=== PATIENT | male | born 1985 | race Caucasian/White ===

== ENCOUNTER 2024-03-01 09:49 | Outpatient (AMB) | payer OTHER, SELFPAY ==
--- NOTE | 2024-03-01 09:35 | A.OFFPC_ITS ---
Vital Signs 03/01/24 09:56 Height 6 ft Weight 284 lb 2 oz BMI 38.5 BP 136/78 Blood Pressure Location Rt brachial Position Sitting Respiration 16 Pulse 77 Pulse Source Pulse Oximeter Temp 97.9 F Temp Source Oral Pulse Oximetry (%) 98 Oxygen Delivery Method Room Air Intake Visit Reasons: ankle pain Intake Note: New patient visit. 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 Allergies No Known Allergies Allergy (Verified 03/01/24 09:35) Medication List - Last Reconciled 03/01/24 by Sejal Beltran PA-C No Known Home Meds Tobacco use date assessed: 03/01/24 Dental Screening Dental Screen Date: 03/01/24 Did you have a dental visit in the last 12 months?: Yes Did you have a dental problem in the last 6 months where you did not have access to dental care?: No Was dental information given to patient?: Patient has dentist HPI ankle pain HPI Details Patient is a 38-year-old male with a significant past medical history of ADHD who presents today to [facility]. He is transferring from [facility] with us. He made this appointment because on Wednesday he injured his right calf while playing pickleball. 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 He states initially on Wednesday he noticed immediate pain and swelling in his calf which has since improved. He states that he was running after a ball when he felt a pop in his leg and was worried that he ruptured his cast. He states that he has full range of motion of his foot and knee without any issues but weight-bearing does elicit pain. He states when he does a lot of walking he gets discomfort in his leg. He has not recently been on antibiotics. He states that he has a bit out of shape for how he normally is in thinks that he just strained it. He states that he has gained a bit of weight since his last office visit and that he normally weighs about 240 lb. He states that he has not eating as healthy as he normally does and is frustrated with his weight. He is tired during the day and does take naps. He does wonder if he could have sleep apnea. He states that he does do a lot of snoring at night. He denies any witnessed apneic events. Psych: He has been on Adderall 20 mg extended release and Adderall 10 mg daily for years. Would like to get restarted on this as he has been out for the last 2 months. 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 1. Little interest or pleasure in doing things: not at all 2. Feeling down, depressed, or hopeless: not at all 3. Trouble falling or staying asleep, or sleeping too much: not at all 4. Feeling tired or having little energy: not at all 5. Poor appetite or overeating: not at all 6. Feeling bad about yourself - or that you are a failure or have let yourself or your family down: not at all 7. Trouble concentrating on things, such as reading the newspaper or watching television: not at all 8. Moving or speaking so slowly that other people could have noticed. Or the opposite - being so fidgety or restless that you have been moving around a lot more than usual: not at all 9. Thoughts that you would be better off or of hurting yourself in some way: not at all Total score: 0 Depression Screening Interpretation: Negative Depression Screening Done: Yes 76072 - PHQ-9 Billing: Yes Source: Developed by Drs. Mike An, Yamileth Reeves, Rcio Yanes and colleagues, with an educational vonda from [employer]. Thrive Questionnaire Date Thrive assessed: 03/01/24 I am a: Patient What is your living situation today?: I have a steady place to live Within the past 12 months, did the food you bought not last and you didn't have the money to get more?: Never true Within the past 12 months, did you worry whether your food would run out before you got money to buy more?: Never true Do you have trouble paying for medicines?: No Do you have trouble getting transportation to medical appointments?: No Do you have trouble paying your heating and electricity bill?: No Do you have trouble taking care of your child, family member or friend?: No Do you have trouble with day-to-day activities such as bathing, preparing meals, shopping, managing finances, etc.?: No Are you currently unemployed and looking for a job?: No Are you interested in more education?: No Please select the resources that you would like help with: None Currently or been in a relationship where the following occur: No concerns reported THRIVE Score: 0 AUDIT C Alcohol Use Questionnaire (AUDIT-C) 1. How often do you have a drink containing alcohol?: 2-3 times a week 2. How many drinks containing alcohol do you have on a typical day when you are drinking?: 3 or 4 3. How often do you have six or more drinks on one occasion?: Monthly Total Score: 6 MIREYA-7 AMB Questionnaire MIREYA-7 Date MIREYA - 7 assessed: 03/01/24 Feeling nervous, anxious, or on edge: 0 = Not at all Not being able to stop or control worryin = Not at all Worrying too much about different things: 0 = Not at all Trouble relaxin = Not at all Being so restless that it is hard to sit still: 0 = Not at all Becoming easily annoyed or irritable: 0 = Not at all Feeling afraid as if something awful might happen: 0 = Not at all Total MIREYA-7 score (0-4 normal; 5-9 mild; 10-14 moderate; 15-21 severe): 0 Source: Developed by Drs. Mike An, Yamileth Reeves, Rico Yanes and colleagues, with an educational vonda from [employer]. MIREYA-7 Assessment Billing MIREYA-7 Assessment Tool: MIREYA-7 Assessment 34335 Physical exam (Primary Care) Vital Signs: Last Vital Signs Temp 97.9 F 03/01/24 09:56 Pulse 77 03/01/24 09:56 Resp 16 03/01/24 09:56 BP 136/78 03/01/24 09:56 Pulse Ox 98 03/01/24 09:56 Oxygen Delivery Method Room Air 03/01/24 09:56 BMI result Body Mass Index 38.5 Tobacco/Smoking Status: Tobacco use Status Tobacco use date assessed 03/01/24 03/01/24 09:38 Patient Tobacco Use Status Former Tobacco user 03/01/24 10:02 e-Cigarette/Vaping Use Never Used 03/01/24 10:02 PHQ-9: PHQ-9 Score PHQ-9: Total score 0 03/01/24 10:02 Depression Screening Interpretation: Negative Thrive Assessment: Date of Thrive Assessment Date Thrive assessed 03/01/24 03/01/24 10:02 Currently or been in a relationship where the following occur: No concerns reported Const Orientation/consciousness: patient oriented x3 HENMT Ears: hearing grossly normal bilaterally Neck Thyroid: Thyroid normal Lymphatic: no lymphadenopathy noted Resp Auscultation: clear to auscultation bilaterally Cardio Rate: regular rate Rhythm: regular rhythm Heart sounds: S1 normal heart sound present and S2 normal heart sound present GI Inspection: Yes normal to inspection Palpation (GI): Soft to palpation and Other GI palpation findings present (nontender, no cva tenderness) Auscultation: normoactive bowel sounds Rectal Exam - Male: Yes deferred Skin General skin exam: no rashes or lesions noted Neuro General: patient oriented x3, gait normal and no focal motor deficits Extrem Other: DP pulses 2+ bilaterally. There is some medial right calf tenderness present. The knee and ankle are nontender. Full range of motion. General: Yes normal to inspection, Yes full ROM and Yes no clubbing, cyanosis or edema Assessment and Plan Assessment & Plan (1) ADHD (attention deficit hyperactivity disorder), combined type: Code(s): F90.2 - Attention-deficit hyperactivity disorder, combined type Plan: Resume his Adderall dosing. Follow up in 3 months for a CSC. (2) Strain of right calf muscle: Code(s): S86.811A - Strain of other muscle(s) and tendon(s) at lower leg level, right leg, initial encounter Plan: Work note provided. Continue with rice. (3) Snoring: Code(s): R06.83 - Snoring Plan: Sleep study ordered (4) Fatigue: Code(s): R53.83 - Other fatigue Plan: As above. Labs ordered today. Would like testing for Lyme disease as well because he states that he has been bit in the past by a tick. Orders: Orders Complete Blood Count Auto Diff Today F90.2 - Attention-deficit hyperactivity disorder, combined type, S86.811A - Strain of other muscle(s) and tendon(s) at lower leg level, right leg, initial encounter Comprehensive [place]. Panel Fast Today F90.2 - Attention-deficit hyperactivity disorder, combined type, S86.811A - Strain of other muscle(s) and tendon(s) at lower leg level, right leg, initial encounter Lyme IgG/IgM w/reflex to WB Today F90.2 - Attention-deficit hyperactivity disorder, combined type, S86.811A - Strain of other muscle(s) and tendon(s) at lower leg level, right leg, initial encounter Vitamin B12 and Folate Today F90.2 - Attention-deficit hyperactivity disorder, combined type, S86.811A - Strain of other muscle(s) and tendon(s) at lower leg level, right leg, initial encounter Lipid Panel Today F90.2 - Attention-deficit hyperactivity disorder, combined type, S86.811A - Strain of other muscle(s) and tendon(s) at lower leg level, right leg, initial encounter TSH reflex Free T4 Today F90.2 - Attention-deficit hyperactivity disorder, combined type, S86.811A - Strain of other muscle(s) and tendon(s) at lower leg level, right leg, initial encounter Magnesium Today F90.2 - Attention-deficit hyperactivity disorder, combined type, S86.811A - Strain of other muscle(s) and tendon(s) at lower leg level, right leg, initial encounter RT home sleep study Today R06.83 - Snoring, R53.83 - Other fatigue Medications: New dextroamphetamine-amphetamine 20 mg ER (Adderall XR) Partial Fill upon patient request. 20 mg PO QAM 30 caps 0RF dextroamphetamine-amphetamine 10 mg (Adderall) Partial Fill upon patient request. 10 mg PO DAILY 30 tabs 0RF Coding Level of Care Code Est Pt Level 4 (88800) Complex EM visit Add On G2211 Diagnoses ADHD (attention deficit hyperactivity disorder), combined type F90.2 Strain of right calf muscle S86.811A Snoring R06.83 Fatigue R53.83 Additional Codes MIREYA-7 Assessment Billing - MIREYA-7 Assessment Tool: MIREYA-7 Assessment 52050 ( [id number])
[2024-03-01 09:56] VITALS: BP 136/78; PULSE 77; RESP 16; TEMP 36.6; O2SAT 98; BMI 38.5
== END 2024-03-01 10:34 | disposition home or self-care (01) ==
PROVIDERS: PCP Physician Assistant; Visit Provider Physician Assistant
DX: R06.83 Snoring (principal); F90.2 Attention-deficit hyperactivity disorder, combined type; S86.811A Strain of other muscle(s) and tendon(s) at lower leg level, right leg, initial encounter; R53.83 Other fatigue
CPT/HCPCS: 99214

== ENCOUNTER 2024-03-01 10:37 | Outpatient (REF) | payer OTHER, SELFPAY ==
[2024-03-01 13:59] LABS: MANUAL DIFF FLAG NO
[2024-03-01 14:07] LABS: Basophils Percent Auto 0.6 % (0-2); Eosinophils Absolute Auto 0.1 X10*3/uL (0.0-0.4); Eosinophils Percent Auto 1.3 % (0-4); Hematocrit 44.8 % (42.0-52.0); Hemoglobin 14.7 g/dl (14.0-18.0); Lymphocytes Absolute Auto 1.9 X10*3/uL (1.2-4.9); Lymphocytes Percent Auto 40.3 % (20-40); Mean Corpuscular HGB Conc 32.8 g/dl (31.0-36.0); Mean Corpuscular Hemoglobin 27.3 pg (27.0-33.0); Mean Corpuscular Volume 83.3 fL (80.0-98.0); Mean Platelet Volume 10.2 fL (9.4-12.4); Monocytes Absolute Auto 0.4 X10*3/uL (0.1-1.2); Monocytes Percent Auto 7.4 % (2-11); Neutrophils Absolute Auto 2.4 x10*3/uL (2.0-8.3); Neutrophils Percent Auto 50.4 % (45-73); Platelet Count 245 X10*3/uL (160-400); Red Blood Count 5.38 X10*6/uL (4.60-5.80); Red Cell Distribution Width 12.8 % (11.0-16.0); White Blood Count 4.7 X10*3/uL (4.8-10.8)
[2024-03-01 14:39] LABS: Alanine Aminotransferase 29 U/L (0-40); Albumin Level 4.4 g/dL (3.5-5.0); Alkaline Phosphatase 46 U/L (39-117); Anion Gap 15 (12-20); Aspartate Amino Transferase 27 U/L (5-37); Bilirubin Total 0.5 mg/dL (0.0-1.0); Blood Urea Nitrogen 17 mg/dL (9-16); Calcium 10.1 mg/dL (8.4-10.2); Carbon Dioxide 24 mmol/L (22-29); Chloride 104 mmol/L (96-108); Cholesterol 239 mg/dL (<200); Estimated Glomerular Filt Rate > 60; Glucose Fasting 89 mg/dL (60-99); HDL Cholesterol 57 mg/dL (>40); LDL Cholesterol Calculated 162 mg/dL (<100); Potassium 4.2 mmol/L (3.3-5.1); Sodium 139 mmol/L (135-145); Total Protein 7.7 g/dL (6.5-8.0); Triglycerides 103 mg/dL (<150)
[2024-03-01 14:43] LABS: TSH reflex Free T4 2.75 uIU/mL (0.32-4.0)
[2024-03-01 14:54] LABS: Folate 7.9 ng/mL (> or = 4.0); Vitamin B12 493 pg/mL (200-900)
[2024-03-03 21:04] LABS: Lyme Abs Screen <0.90 index
== END 2024-03-01 10:38 | disposition home or self-care (01) ==
LOC: HO.WFDLDS 10:37
PROVIDERS: Visit Provider Physician Assistant
DX: F90.2 Attention-deficit hyperactivity disorder, combined type (principal); S86.811A Strain of other muscle(s) and tendon(s) at lower leg level, right leg, initial encounter
CPT/HCPCS: 36415; 80053; 80061; 82607; 82746; 83735; 84443; 85025; 86617; 86618

== ENCOUNTER 2024-11-01 11:05 | Outpatient (AMB) | payer OTHER, SELFPAY ==
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
[2024-11-01 11:13] VITALS: BP 128/72; PULSE 85; O2SAT 97; BMI 37.8
--- OUTSIDE RECORDS SUMMARY | 2024-11-01 13:25 | XMS_ITS | Clinical Summary ---
Author Organization [facility] it Address [address] [place] [address] Care Team Providers Care Benefit Authorizer Name Role Phone Ernestina-Xochitl Troy MD Primary Care Provid er Surgical History Surgery Date Site/Laterality Comments KNEE SURGERY 2003 Bilateral PROCEDURE: HISTORICAL KNEE SURGERY; COMMENT: 2003- rt and 2011 for left knee, acl tears NASAL SEPTUM SURGERY PROCEDURE: IN REPAIR NASAL SEPTAL PERFORATIONS Medical History Medical History Date Comments S/P vasectomy 10/26/2016 DX:S/P vasectomy Folliculitis 10/26/2016 DX:Folliculitis Family History Medical History Relation Name Comments Brain cancer Other son of uncle #1 -paternal first cousin Stomach cancer Paternal Grandfather Stomach cancer Uncle 1 Other: stomach cancer Uncle 2 Relation Name Status Comments Brother 1 Alive healthy Brother 2 Alive healthy Father Alive healthy Maternal Grandfather MS in l ate 60s/early 70s Mother Alive healthy Other Alive Paternal Grandfather Paternal Grandmother Sister Alive healthy Uncle 1 stomach ca - fa ther's side Uncle 2 Alive Social History Tobacco Use Types Packs/Day Years Used Date Smoking Tobacco: Former Smokeless Tobacco: Never Alcohol Use Standard Drinks/Week Comments Yes 0 (1 standard drink = 0.6 oz pur e alcohol) Sex and Gender Information Value Date Recorded Sex Assigned at Not on file Legal Sex Male 8:27 AM EST Gender Identity Not on file Sexual Orientation Not on file Obstetrics History Plan of Treatment Health Maintenance Due Date Last Done Comments IPV Vaccines (2 of 3 - 4-dose series) 01/26/1988 12/29/1987 DTaP,Tdap,and Td Vaccines (9 - Td or Tdap) 03/16/2023 03/16/2013, 12/13/2002, 04/04/1997, Additional history exists COVID-19 Vaccine ( season) 2024 Influenza Vaccine (#1) 2024 07/26/2017 HIB Vaccines Completed 12/29/1987 Hepatitis B Vaccines Completed 10/22/1997, 05/07/1997, 04/04/1997 MMR Vaccines Completed 12/24/1997, 06/30/1987 HPV Vaccines Aged Out No longer eligi ble based on patient's age to complete this topic Hepatitis A Vaccines Aged Out No long er eligible based on patient's age to complete this topic Meningococcal ACWY Vaccine Aged Out N o longer eligible based on patient's age to complete this topic Meningococcal B Vacine Aged Out No lo nger eligible based on patient's age to complete this topic Pneumococcal Vaccine: Pediatrics (0 to 5 Years) and At-Risk Patients (6 to 64 Years) Aged Out No longer eligible based on patient's age to complete this topic RSV Immunization Patients Under 20 months Aged Out No longer eligible based on patient's age to complete this topic Varicella Vaccines Aged Out No longer eligible based on patient's age to complete this topic Care Teams Benefit Authorizer Relationship Specialty Start Date End Date [place]-Xochitl Troy MD PCP - General Internal Medicine 08/28/15
== END 2024-11-01 14:12 | disposition home or self-care (01) ==
LOC: HO.HMCFM 11:06
PROVIDERS: PCP Physician Assistant; Visit Provider Physician Assistant
DX: M54.2 Cervicalgia (principal); M54.9 Dorsalgia, unspecified; V89.2XXA Person injured in unspecified motor-vehicle accident, traffic, initial encounter

== ENCOUNTER → 2024-11-01 11:05 | Outpatient (BNVA) | payer OTHER, SELFPAY | PROVIDERS: PCP Physician Assistant; Visit Provider Physician Assistant | DX: M54.2 Cervicalgia (principal); M54.50 Low back pain, unspecified; M54.6 Pain in thoracic spine | CPT/HCPCS: 96127 ==

== ENCOUNTER → 2025-01-31 12:53 | Outpatient (AMB) | payer OTHER, SELFPAY ==
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
[2025-01-31 13:18] VITALS: BP 122/74; PULSE 79; RESP 16; TEMP 36.8; O2SAT 96; BMI 38.4
--- OUTSIDE RECORDS SUMMARY | 2025-01-31 14:46 | XMS_ITS | Clinical Summary ---
[facility] [address] [place] [address] Care Team Providers Care Mangle Operator Garments Name Role Phone Ernestina-Xochitl Troy MD Primary Care Provid er Surgical History Surgery Date Site/Laterality Comments KNEE SURGERY 2003 Bilateral PROCEDURE: HISTORICAL KNEE SURGERY; COMMENT: 2003- rt and 2011 for left knee, acl tears NASAL SEPTUM SURGERY PROCEDURE: [place] REPAIR NASAL SEPTAL PERFORATIONS Medical History Medical [...] Alive healthy Father Alive healthy Maternal Grandfather [place] in l ate 60s/early 70s Mother Alive [...] COVID-19 Vaccine ( season) 2024 Influenza Vaccine (Season Ended) 2025 07/26/2017 HIB Vaccines Completed 12/29/1987 Hepatitis B [...] age to complete this topic Meningococcal B Vaccine Aged Out No l onger eligible based on patient's age to complete [...] age to complete this topic Care Teams Mangle Operator Garments Relationship Specialty Start Date End Date [place]-Xochitl Troy MD PCP - General Internal Medicine 08/28/15
== END ==
LOC: HO.HMCFM 12:54
PROVIDERS: PCP Physician Assistant; Visit Provider Physician Assistant
DX: M25.531 Pain in right wrist (principal); V89.2XXA Person injured in unspecified motor-vehicle accident, traffic, initial encounter

== ENCOUNTER → 2025-01-31 12:53 | Outpatient (BNVA) | payer OTHER, SELFPAY | PROVIDERS: PCP Physician Assistant; Visit Provider Physician Assistant | DX: Z13.89 Encounter for screening for other disorder (principal) ==

== ENCOUNTER → 2025-02-19 13:53 | Outpatient (REF) | payer OTHER, SELFPAY ==
--- OUTSIDE RECORDS SUMMARY | 2025-02-19 14:20 | XMS_ITS | Clinical Summary ---
[facility] Address [address] [place] [address] Care Team Providers Care Program Or Project Administrator Name Role Phone Ernestina-Xochitl Troy MD Primary Care Provid er Surgical History Surgery Date Site/Laterality Comments KNEE SURGERY 2003 Bilateral PROCEDURE: HISTORICAL KNEE SURGERY; COMMENT: 2003- rt and 2011 for left knee, acl tears NASAL SEPTUM SURGERY PROCEDURE: [place] REPAIR NASAL SEPTAL PERFORATIONS Medical History Medical [...] Alive healthy Father Alive healthy Maternal Grandfather [place] in l ate 60s/early 70s Mother Alive [...] Vaccine ( season) 2024 Influenza Vaccine (#1) 2025 07/26/2017 HIB Vaccines Completed 12/29/1987 Hepatitis [...] 5 Years) and At-Risk Patients (6 to 49 Years) Aged Out No longer eligible based on patient's age to complete this topic RSV Immunization Patients Under 20 months Aged Out No longer eligible based on patient's age to complete this topic Varicella Vaccines Aged Out No longer eligible based on patient's age to complete this topic Care Teams Program Or Project Administrator Relationship Specialty Start Date End Date [place]-Xochitl Troy MD PCP - General Internal Medicine 08/28/15
== END ==
LOC: HO.SL 13:53
PROVIDERS: PCP Physician Assistant; Visit Provider Physician Assistant
DX: R06.81 Apnea, not elsewhere classified (principal); R06.83 Snoring; R53.83 Other fatigue; R40.0 Somnolence
CPT/HCPCS: 95806

== ENCOUNTER → 2025-02-19 14:06 | Outpatient (BNV) | payer OTHER, SELFPAY | PROVIDERS: PCP Physician Assistant; Visit Provider Internal Medicine | DX: R06.83 Snoring (principal) | CPT/HCPCS: 95806 ==

== ENCOUNTER 2025-04-02 07:57 | Outpatient (REF) | payer OTHER, SELFPAY ==
--- NOTE | ~2025-04-02 | XR_ITS ---
EXAMINATION: XR WRIST NAVICULAR RIGHT HISTORY: M79.641 - Pain in right hand COMPARISON: There are no prior studies available for comparison. FINDINGS: Four views of the right wrist including a scaphoid view are submitted. Osseous mineralization is normal. There is no fracture or dislocation. The joint spaces are preserved. The soft tissues are unremarkable. XR/XR wrist RT w scaphoid IMPRESSION: Unremarkable examination of the right wrist. Electronically signed by: Mike Velez MD 04/02/2025 09:25 AM EDT
--- OUTSIDE RECORDS SUMMARY | 2025-04-02 07:59 | XMS_ITS | Continuity of Care Document ---
Author Name [facility] Organization [facility] Care Team Providers Care Museum Preparator Name Role Phone [facility] Unavailable Unavailable Problems Combined list of problems from Department of Defense and Veterans Affairs facilities. It does not include entries that were removed or entered in error. Problem Status Onset Date Problem Type Date of Resolution Comments Source DEVIATED NASAL SEPTUM (ACQUIRED) Active Condition DoD visit for: follow-up exam Active Condition DoD GASTROENTERITIS Active Condition DoD Allergies, Adverse Reactions, Alerts Combined list of allergies from Department of Defense and Veterans Affairs facilities. It does not include entries that were removed or entered in error. Substance Category Reaction Severity Reaction type Status Date Reported Comments Source No Known Allergies Drug allergy (disorder) active 10/01/2009 [place] [address] Immunizations Combined list of available immunizations from the Department of Defense and Veterans Affairs facilities. Immunization Series Date Given Administered By Site Reaction Lot Number CVX Code Drug Septic Cleaner Status Comments Source Influenza, injectable, quadrivalent, preservative free 1 2013 [id number] (IDB) complet ed Influenza , injectabl e, quadrival ent, preservat navdeep free DoD Influenza, seasonal, injectable 5 2012 [id number] 141 [employer] (CSL) complet ed Influenza , seasonal, injectabl e DoD measles virus vaccine 0 2012 05 () Not Given measles virus vaccine DoD rubella virus vaccine 0 2012 06 () Not Given rubella virus vaccine DoD Influenza, seasonal, injectable 1 2011 [id number] 141 [employer] (CSL) complet ed Influenza , seasonal, injectabl e DoD Influenza, seasonal, injectable 0 2010 [id number] Sanofi Pasteur ([facility]) complet ed Influenza , seasonal, injectabl e DoD influenza virus vaccine, split virus (incl. purified surface antigen)-reti red CODE 1 2009 [id number] Sanofi Pasteur ([facility]) complet ed influenza virus vaccine, split virus (incl. purified surface antigen)- retired CODE DoD hepatitis A vaccine, adult dosage 2 2009 [id number] 52 SmithKline ([facility]) complet ed hepatitis A vaccine, adult dosage DoD measles, mumps and rubella virus vaccine 1 2008 03 () Not Given measles, mumps and rubella virus vaccine DoD varicella virus vaccine 1 2008 21 () Not Given varicella virus vaccine DoD hepatitis B vaccine, adult dosage 1 2008 43 () Not Given hepatitis B vaccine, adult dosage DoD hepatitis A vaccine, adult dosage 1 2008 [id number] 52 SmithKline (SKB) complet ed hepatitis A vaccine, adult dosage DoD poliovirus vaccine, inactivated 1 2008 [id number] 10 Sanofi Pasteur ([facility]) complet ed polioviru s vaccine, inactivat ed DoD influenza virus vaccine, split virus (incl. purified surface antigen)-reti red CODE 1 2008 [id number] 1A 15 [facility] (CSL) complet ed influenza virus vaccine, split virus (incl. purified surface antigen)- retired CODE DoD meningococcal polysaccharid e (groups A, C, Y and W-135) diphtheria toxoid conjugate vaccine (MCV4P) 1 2008 [id number] Sanofi Pasteur ([facility]) complet ed meningoco ccal polysacch aride (groups A, C, Y and W-135) diphtheri a toxoid conjugate vaccine (MCV4P) DoD tetanus toxoid, reduced diphtheria toxoid, and acellular pertu is vaccine, adsorbed 1 2008 [id number] 115 SmithKline ([facility]) complet ed tetanus toxoid, reduced diphtheri a toxoid, and acellular pertussis vaccine, adsorbed DoD Encounters Combined list of: 1) Encounters from Department of Veterans Affairs facilities going backup to the last 18 months, not all VA inpatient encounters are included; 2) Encounters from the Department of Defense facilities going backup to 280 months. Location Location Details Encounter Type Encounter Number Reason For Visit Attending Provider ADM Date DC Date Status Disposition [place] [address]([facility]) OUTPATIENT [id number] N/V/D (343) STEVEN CHENG 10/01 Sick at Home/Quarter s [facility] [place] [address] [place] [address] OUTPATIENT [id number] F/U EVAL WAIVER (343) STEVEN CHENG 10/02 Released w/o Limitations [facility] [place] [address](Lottie clifton [facility] AmadorKonrad d) Procedures Combined list of: 1) Procedures from Department of Veterans Affairs facilities going back up to thelast 18 months, not all VA non-surgical procedures are included; 2) All procedures from the Department of Defense facilities. Procedure Procedure Type Code Date Perfomer Comments Ayden e NONINVASIVE EAR OR PULSE OXIMETRY FOR OXYGEN SATURATION; SINGLE DETERMINATION 10/02/2009 [facility] NONINVASIVE EAR OR PULSE OXIMETRY FOR OXYGEN SATURATION; SINGLE DETERMINATION 10/01/2009 [facility] THERAPEUTIC, PROPHYLACTIC, OR DIAGNOSTIC INJECTION (SPECIFY SUBSTANCE OR DRUG); SUBCUTANEOUS OR INTRAMUSCULAR 07/10/2009 [facility] FITTING OF SPECTACLES, EXCEPT FOR APHAKIA; MONOFOCAL 07/08/2009 [facility] Pulse Oximetry Pulse Oximetry 53290 10/02/2009 STEVEN RAY [facility] Pulse Oximetry Pulse Oximetry 37651 10/01/2009 STEVEN RAY [facility] Social History Combined list of available smoking, tobacco, and other social history from Department of Defense and Veterans Affairs facilities. Social History Type Response Date Comment Sourc e This section is an empty social history section. DoD
--- OUTSIDE RECORDS SUMMARY | 2025-04-02 08:00 | XMS_ITS | Clinical Summary ---
Author Organization [facility] it Address [address] [place] [address] Care Team Providers Care Supervisor Facepiece Line Name Role Phone Ernestina-Xochitl Troy MD Primary [...] Alive healthy Father Alive healthy Maternal Grandfather [place] in l ate 60s/early 70s Mother Alive [...] history exists COVID-19 Vaccine ( season) 2024 Depression Screening 08/16/2024 Influenza Vaccine (#1) 2025 07/26/2017 HIB Vaccines [...] age to complete this topic Care Teams Supervisor Facepiece Line Relationship Specialty Start Date End Date [place]-Xochitl Troy MD PCP - General Internal Medicine 08/28/15
== END 2025-04-02 07:58 | disposition home or self-care (01) ==
LOC: HO.HOSX 07:57
DX: M77.8 Other enthesopathies, not elsewhere classified (principal); M79.641 Pain in right hand
CPT/HCPCS: 73110; 99202

== ENCOUNTER 2025-04-02 08:58 | Outpatient (AMB) | payer OTHER, SELFPAY ==
[2025-04-02 09:07] VITALS: BMI 38.4
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
== END 2025-04-02 09:26 | disposition home or self-care (01) ==
LOC: HO.HOS 08:59
DX: M77.8 Other enthesopathies, not elsewhere classified (principal)
CPT/HCPCS: 99203

== ENCOUNTER → 2025-04-02 09:02 | Outpatient (BNV) | payer OTHER, SELFPAY | PROVIDERS: Visit Provider Radiology Diagnostic Radiology | DX: M79.641 Pain in right hand (principal) | CPT/HCPCS: 73110 ==

== ENCOUNTER 2025-06-28 07:05 | Outpatient (RCR) | payer OTHER, SELFPAY ==
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
--- NOTE | 2025-07-04 13:35 | MHC.OT.DC ---
[facility] Office [address] [phone] F: [phone] F: [phone] Occupational Therapy Discharge Note Patient Name: Bar Rudd Provider: Dallas Manley Diagnosis: Flexor carpi radialis tendinitis Date of Evaluation: 04/26/25 Date of Discharge: 07/04/25 Treatments to Date: 10 Discharge Status: Achieved Goals Improved Function Independent with HEP Discharge Summary: Pt has been increasing functional use of R UE and returned to the gym without increase in symptoms. Has not trialed consistent push-ups due to old shoulder injury. Pt believes he is at near baseline with just some residual stiffness when in full wrist extension. Discussed incorporating yoga stretches and continued ROM at home. Pt in agreement with discharge next visit. 07/04 - Pt cancelled last appointment, therefore objective measurements not taken. However, last visit historical interpreter strength improved to 135# on the R (compared to 140# on the left.) Pt demonstrated IND with HEP. Thank you for this referral. Electronically Signed By: Nataly Worley MS OTR/L Reviewed/agree with student documentation: Therapist: Please Sign and return to therapist, thank you for your referral.
== END 2025-08-01 10:25 | disposition home or self-care (01) ==
LOC: HO.OTS 07:05
DX: M77.8 Other enthesopathies, not elsewhere classified (principal)
CPT/HCPCS: 97035; 97110; 97165